=== PATIENT | female | born 1975 | race African-American/Black ===

== ENCOUNTER 2016-11-18 17:04 | Emergency (ER) | payer OTHER ==
[~2016-11-18] VITALS: Ht 160 cm; Wt 47.2 kg
--- NOTE | ~2016-11-18 | EKG ---
[address] [address] ELECTROCARDIOGRAM REPORT Name: TOMASRENUKAJAIME D [id number] Admission: 11/18/16 Attend Phys: Discharge: 11/18/16 Date of : 73 Report #: [id number] THIS REPORT FOR: //name// [facility] ED Test Date: 2016-11-18 Test Time: 17:05:40 Pat Name: JAIME SMALL Department: Room: Gender: F [employer] Hel[employer]: [id number] : 1975 Requested By: Hank Pickens Order Number: [id number] MD: Jules Grant Measurements Intervals [place] Rate: 100 P: 51 HI: 138 QRS: -16 QRSD: 100 T: 29 QT: 374 QTc: 483 Interpretive Statements Sinus tachycardia Probable left atrial enlargement Borderline left axis deviation Anteroseptal infarct, age indeterminate No previous ECG available for comparison Electronically Signed On 11-19-2016 8:58:04 CDT by Jules Grant [email or web address] <ELECTRONICALLY SIGNED> By: Jules Grant MD 11/19/16 [id number] 1705 1705 MD MARIO Govea
[~2016-11-18 17:04] MED LIST: MOBIC15 MG PO; NEURONTIN 300300 M1 PO
[2016-11-18 17:46] LABS: ABSOLUTE NEUTROPHILS 2.1 thou/uL (1.4-8.2); BASOPHILS 0.1 % (0.0-2.0); EOSINOPHILS 2.2 % (0.0-3.0); HEMATOCRIT 31.2 % (37.0-47.0); HEMOGLOBIN 9.8 gm/dL (12.0-15.0); MCH 24.1 pg (26.0-34.0); MCHC 31.4 g/dL (28.0-37.0); MCV 76.8 fL (80.0-100.0); MONOCYTES 9.1 % (1.0-8.0); PLATELET COUNT 182 thou/uL (150-400); POLYS 42.6 % (36.0-66.0); RBC 4.06 mil/uL (4.20-5.00); RDW 20.9 % (10.5-14.5); WBC 4.9 thou/uL (4.0-11.0)
[2016-11-18 17:49] LABS: MANUAL DIFF NO
[2016-11-18 17:59] LABS: ANION GAP 9 mmol/L (7-16); BUN 3 mg/dL (7-18); CHLORIDE 107 mmol/L (98-107); CO2 27 mmol/L (21-32); CREATININE 0.5 mg/dL (0.6-1.0); GLUCOSE 86 mg/dL (74-106); POTASSIUM 3.4 mmol/L (3.5-5.1); SODIUM 143 mmol/L (136-145)
[2016-11-18 18:06] LABS: ALBUMIN 3.8 g/dL (3.4-5.0); ALKALINE PHOSPHATASE 67 U/L (46-116); MAGNESIUM 1.8 mg/dL (1.8-2.4); SGOT 188 U/L (15-37); SGPT 144 U/L (30-65); TOTAL BILIRUBIN 0.2 mg/dL (<0.1-1.0); TOTAL PROTEIN 8.2 g/dL (6.4-8.2); TROPONIN-I < 0.04 ng/mL (<0.04-0.07)
[2016-11-18] MEDS ORDERED: CARAFATE 1 GM TA1 G1 PO (20:17)
[2016-11-18] MEDS ORDERED: PANTOPRAZOLE SO40 M1 PO (20:17)
[2016-11-18 20:25] VITALS: BP 141/99
== END 2016-11-18 20:26 | disposition home or self-care (01) ==
LOC: ER 17:04
PROVIDERS: Emergency Medicine
DX: R07.89 Other chest pain (principal); F17.210 Nicotine dependence, cigarettes, uncomplicated; F10.99 Alcohol use, unspecified with unspecified alcohol-induced disorder; Z88.0 Allergy status to penicillin